=== PATIENT | female | born 1990 | race Caucasian/White ===

== ENCOUNTER → 2016-02-17 | Outpatient (CLI) | payer MEDICAID ==
[2016-02-17 16:28] LABS: Hepatitis B Surface Ag Index 0.05
[2016-02-18 07:55] LABS: HIV-1/HIV-2 Ab Screen NONREAC (NON REAC)
== END | disposition home or self-care (01) ==
LOC: LABWHC1 14:57
PROVIDERS: ATTEND Obstetrics & Gynecology
DX: Z11.3 Encounter for screening for infections with a predominantly sexual mode of transmission (principal)
CPT/HCPCS: 36415; 86780; 87340; 87389; 87491; 87591

== ENCOUNTER 2016-09-22 23:52 | Emergency (ER) | payer MEDICAID ==
[2016-09-23] VITALS: BP 138/73; PULSE 94; RESP 18; TEMP 98.5
--- NOTE | 2016-09-23 00:40 | ED ---
URI HPI - General Chief Complaint: Upper Respiratory Infection Stated Complaint: cough,sore throat Time Seen by Provider: 09/23/16 00:14 Source: patient Mode of arrival: ambulatory Limitations: no limitations - History of Present Illness Initial Comments: This patient is a 25-year-old woman with history of asthma who presents with cough, postnasal drip, very minimal congestion, and some greenish sputum production. All the symptoms have started over the course of past day and worsening tonight. She did try [id number] cough remedies without much relief and has used her albuterol without much change. MD Complaint: cough, sore throat -: days(s) Severity: moderate Quality: burning Consistency: constant Improves With: nothing Worsens With: nothing Context: sick contacts Associated Symptoms: rhinorrhea, sore throat, cough Treatments Prior to Arrival: "cold medicine", other - Related Data Home Medications Medication Instructions Recorded Confirmed Albuterol Inhaler [Ventolin Hfa 2 puff INHALATION QID PRN 09/23/16 09/23/16 Inhaler] Previous Rx's Medication Instructions Recorded Azithromycin [Zithromax Z-pack] 250 mg PO DIRECTED #6 tab 09/23/16 Fluconazole [Diflucan] 150 mg PO ONCE #1 tab 09/23/16 Promethazine 6.25MG/5Ml [Phenergan 5 ml PO Q4HR PRN #120 ml 09/23/16 Syrup] Allergies Allergy/AdvReac Type Severity Reaction Status Date / Time No Known Allergies Allergy Verified 09/23/16 00:00 Review of Systems ROS Statement: Those systems with pertinent positive or pertinent negative responses have been documented in the HPI. ROS Other: All systems not noted in ROS Statement are negative. Constitutional: Denies: fever, chills ENT: Reports: throat pain Respiratory: Reports: cough. Denies: dyspnea, wheezes, hemoptysis Cardiovascular: Denies: chest pain, palpitations Gastrointestinal: Denies: abdominal pain, vomiting Genitourinary: Denies: dysuria, hematuria Musculoskeletal: Denies: back pain Neurological: Denies: headache Past Medical History Past Medical History: Asthma History of Any Multi-Drug Resistant Organisms: None Reported Past Surgical History: No Surgical Hx Reported Additional Past Surgical History / Comment(s): wisdom teeth removal Past Psychological History: No Psychological Hx Reported Smoking Status: Current some day smoker Past Alcohol Use History: Occasional Past Drug Use History: None Reported General Exam Limitations: no limitations General appearance: alert, in no apparent distress Head exam: Present: atraumatic, normocephalic Eye exam: Present: normal appearance. Absent: scleral icterus, conjunctival injection ENT exam: Present: mucous membranes moist, TM's normal bilaterally, normal external ear exam, other (There is injection of the pharynx. With mild cobblestoning) Neck exam: Present: normal inspection, full ROM, lymphadenopathy. Absent: meningismus Respiratory exam: Present: normal lung sounds bilaterally. Absent: respiratory distress, wheezes, rales, rhonchi, stridor Cardiovascular Exam: Present: regular rate, normal rhythm, normal heart sounds Neurological exam: Present: alert Skin exam: Present: warm, dry, intact, normal color. Absent: rash Course Vital Signs 09/22/16 09/23/16 23:57 00:51 Temperature 98.5 F Pulse Rate 94 Respiratory 18 18 Rate Blood Pressure 138/73 O2 Sat by Pulse 99 Oximetry Disposition Clinical Impression: Bronchitis, Upper respiratory infection Disposition: HOME SELF-CARE Condition: Fair Instructions: Upper Respiratory Infection (ED), Acute Bronchitis (ED) Prescriptions: Azithromycin [Zithromax Z-pack] 250 mg PO DIRECTED #6 tab Fluconazole [Diflucan] 150 mg PO ONCE #1 tab Promethazine 6.25MG/5Ml [Phenergan Syrup] 5 ml PO Q4HR PRN #120 ml PRN Reason: Cough Referrals: None,Stated [Primary Care Provider] - 1-2 days
[2016-09-23] MEDS ORDERED: AZITHROMYCIN 500 MG TAB PO STA (00:49)
== END 2016-09-23 00:58 | disposition home or self-care (01) ==
LOC: EC 23:52
DX: J40 Bronchitis, not specified as acute or chronic (principal); J06.9 Acute upper respiratory infection, unspecified; F17.200 Nicotine dependence, unspecified, uncomplicated
CPT/HCPCS: 99283

== ENCOUNTER → 2018-04-24 | Outpatient (CLI) | payer MEDICAID ==
[2018-04-24 11:12] LABS: HCT 39.8 % (34.0-46.0); HGB 13.3 gm/dL (11.4-16.0); MCH 32.3 pg (25.0-35.0); MCHC 33.5 g/dL (31.0-37.0); MCV 96.6 fL (80.0-100.0); Mean Platelet Volume 6.9; Platelet Count 228 k/uL (150-450); RBC 4.12 m/uL (3.80-5.40); RDW 12.3 % (11.5-15.5); WBC 4.5 k/uL (3.8-10.6)
[2018-04-24 17:49] LABS: Albumin 4.2 g/dL (3.80-4.90); Anion Gap 6.9 mmol/L (4.00-12.00); Carbon Dioxide 25.1 mmol/L (21.6-31.8); Globulin 2.1 g/dL (1.6-3.3); Potassium 3.9 mmol/L (3.5-5.5); Total Bilirubin 0.6 mg/dL (0.3-1.2); Total Protein 6.3 g/dL (6.2-8.2)
[2018-04-24 17:58] LABS: Iron Saturation 31.57 (12.00-45.00)
[2018-04-24 18:42] LABS: Egg White IgE <0.10 kU/L; Scallop IgE <0.10 kU/L; Walnut IgE (Food) <0.10 kU/L
[2018-04-24 18:44] LABS: Codfish IgE <0.10 kU/L; Peanut IgE <0.10 kU/L; Soybean IgE <0.10 kU/L
[2018-04-24 18:45] LABS: Clam IgE <0.10 kU/L; Shrimp IgE <0.10 kU/L
[2018-04-24 18:47] LABS: Immunoglobulin E 8.76 IU/mL (0.00-114.00)
== END | disposition home or self-care (01) ==
LOC: LABWHC1 10:18
PROVIDERS: ATTEND Family Medicine
DX: T78.1XXA Other adverse food reactions, not elsewhere classified, initial encounter (principal); R10.9 Unspecified abdominal pain; Z86.2 Personal history of diseases of the blood and blood-forming organs and certain disorders involving the immune mechanism
CPT/HCPCS: 36415; 80053; 82607; 82728; 82747; 82785; 83516; 83540; 83550; 85027; 86003

== ENCOUNTER → 2020-12-12 | Outpatient (CLI) | payer MEDICAID ==
[2020-12-12 20:29] LABS: HCT 42.5 % (37.2-46.3); HGB 13.4 g/dL (12.0-15.0); MCH 29.8 pg (27.0-32.0); MCHC 31.5 g/dL (32.0-37.0); MCV 94.7 fL (80.0-97.0); Mean Platelet Volume 11.1 fL (9.5-12.2); Platelet Count 263 X 10*3/uL (140-440); RBC 4.49 X 10*6/uL (4.10-5.20); RDW 12.8 % (11.5-14.5); WBC 5.62 X 10*3/uL (4.50-10.00)
[2020-12-12 21:30] LABS: African American GFR (CKD) 140.6 (60.0-200.0); Albumin 4.6 g/dL (3.8-4.9); Albumin/Globulin Ratio 1.95 (1.60-3.17); Anion Gap 12.2 mmol/L (4.00-12.00); BUN/Creat Ratio 22.24 Ratio (12.00-20.00); Blood Urea Nitrogen 13.1 mg/dL (9.0-27.0); Calcium 9.4 mg/dL (8.7-10.3); Carbon Dioxide 24.9 mmol/L (21.6-31.8); Globulin 2.3 g/dL (1.6-3.3); Non-African American GFR(CKD) 121.3 (60.0-200.0); Potassium 4.1 mmol/L (3.5-5.5); Total Bilirubin 0.4 mg/dL (0.30-1.20); Total Protein 6.9 g/dL (6.2-8.2)
== END | disposition home or self-care (01) ==
LOC: LABWHC1 11:20
PROVIDERS: ATTEND Family Medicine
DX: D50.9 Iron deficiency anemia, unspecified (principal); R53.83 Other fatigue
CPT/HCPCS: 36415; 80053; 84443; 84481; 85027

== ENCOUNTER → 2021-10-13 | Outpatient (CLI) | payer MEDICAID ==
[2021-10-13 19:53] LABS: C Reactive Protein <0.30 mg/dL (0.00-0.80); Rheumatoid Factor, Qnt <10 IU/mL (0-15); Uric Acid 3.5 mg/dL (2.9-7.7)
[2021-10-13 20:27] LABS: DNA Double-Stranded NEGATIVE (NEGATIVE)
[2021-10-13 21:05] LABS: Basophils # (A) 0.02 X 10*3/uL (0.00-0.10); Basophils % (A) 0.4 %; Eosinophils # (A) 0.01 X 10*3/uL (0.04-0.35); Eosinophils % (A) 0.2 %; HCT 37.6 % (37.2-46.3); Immature Grans, Automated 0.2 %; Lymphocytes # (A) 1.84 X 10*3/uL (0.90-5.00); Lymphocytes % (A) 32.3 %; MCH 29.6 pg (27.0-32.0); MCHC 31.9 g/dL (32.0-37.0); MCV 92.8 fL (80.0-97.0); Monocytes # (A) 0.47 X 10*3/uL (0.20-1.00); Monocytes % (A) 8.2 %; NRBC Per 100 WBC 0 /100 WBCS (0.0-0.0); Neutrophils # (A) 3.35 X 10*3/uL (1.80-7.70); Neutrophils % (A) 58.7 %; Platelet Count 265 X 10*3/uL (140-440); RBC 4.05 X 10*6/uL (4.10-5.20); RDW 13.2 % (11.5-14.5)
[2021-10-13 21:23] LABS: Erythrocyte Sedimentation Rate 5 mm/Hr (0-20)
[2021-10-14 13:04] LABS: HLA B27 NEGATIVE
== END | disposition home or self-care (01) ==
LOC: LABWHC1 11:36
PROVIDERS: ATTEND Orthopaedic Surgery
DX: M25.50 Pain in unspecified joint (principal)
CPT/HCPCS: 36415; 84550; 85025; 85652; 86038; 86140; 86225; 86431; 86812

== ENCOUNTER → 2021-11-28 | Outpatient (CLI) | payer MEDICAID ==
--- NOTE | 2021-11-28 17:30 | MR ---
EXAMINATION TYPE: MR knee LT wo con DATE OF EXAM: 11/28/2021 COMPARISON: Radiograph 10/11/2021 HISTORY: 31 year-old female M25.562, Left knee pain and swelling since 08-28-21. TECHNIQUE: Multiplanar, multisequence imaging of the left knee is performed without IV contrast. FINDINGS: The ACL, PCL, MCL, and LCL complex are intact. Both medial and lateral menisci appear intact. There is some edema noted along the posteromedial corner of the tibial plateau corresponding to the i nsertion of the semimembranosus. There is a multilocular ganglion cysts at the tendon insertion measu ring 2.3 cm craniocaudal by 1.7 cm wide by 5 mm AP and seems to reflect a partial thickness insertion al tear. Tricompartmental articular cartilage volumes appear maintained. There is a moderate knee joint effusion and possible mild chronic synovitis. No appreciable Yu's c yst. Extensor mechanism is intact. Trace fluid within the deep infrapatellar bursa. Normal popliteal artery anatomy and muscle bulk. No suspicious bone marrow replacement. IMPRESSION: 1. Soft tissue swelling adjacent to the the posteromedial lip of the tibial plateau seems to correspo nd to the region of the semimembranosus insertion. There is a multilocular ganglion cyst here measuri ng 2.3 x 1.7 x 0.5 cm that may reflect a partial thickness insertional tear. 2. No discrete cruciate/collateral ligament or meniscal tear. No discrete cartilage injury seen. 3. Moderate knee joint effusion with mild chronic synovitis.
== END | disposition home or self-care (01) ==
LOC: RADMRIMAIN 11:06
PROVIDERS: ATTEND Orthopaedic Surgery
DX: M67.462 Ganglion, left knee (principal); M65.9 Synovitis and tenosynovitis, unspecified

== ENCOUNTER → 2023-05-01 | Outpatient (CLI) | payer MEDICAID ==
[2023-05-01 17:05] LABS: HCT 40.3 % (37.2-46.3); HGB 13.3 g/dL (12.0-15.0); MCV 90.8 FL (80.0-97.0); Mean Platelet Volume 10.7 FL (9.5-12.2); NRBC Per 100 WBC 0 X 10*3/uL (0.00-0.01); Platelet Count 336 X 10*3/uL (140-440); RBC 4.44 X 10*6/uL (4.10-5.20); RDW 12.2 % (11.5-14.5); WBC 5.82 X 10*3/uL (4.50-10.00)
[2023-05-01 17:41] LABS: % Iron Saturation 33.67 (12.00-45.00); ALT 16 U/L (8-44); AST 29 U/L (13-35); Albumin 4.8 g/dL (3.8-4.9); Albumin/Globulin Ratio 1.85 Ratio (1.60-3.17); Alkaline Phosphatase 64 U/L (41-126); BUN/Creat Ratio 20.67 Ratio (12.00-20.00); Blood Urea Nitrogen 12.4 mg/dL (9.0-27.0); Calcium 9.7 mg/dL (8.7-10.3); Carbon Dioxide 22.8 mmol/L (21.6-31.8); Chloride 104 mmol/L (96-109); Chol/HDL Ratio 2.75 Ratio; Ferritin 47.8 ng/mL (10.0-291.0); Globulin 2.6 g/dL (1.6-3.3); Glucose 97 mg/dL (70-110); Iron 167 UG/DL (50-170); LDL Cholesterol,Calculated 102.4 mg/dL (0.0-131.0); Potassium 4.6 mmol/L (3.5-5.5); Sodium 140 mmol/L (135-145); Total Bilirubin 0.5 mg/dL (0.3-1.2); Total Iron Binding Capacity 496 UG/DL (228-460); Total Protein 7.4 g/dL (6.2-8.2); VLDL Calculation 14.84 mg/dL (5.00-40.00)
== END | disposition home or self-care (01) ==
LOC: LABWHC1 10:07
PROVIDERS: ATTEND Family Medicine
DX: Z00.01 Encounter for general adult medical examination with abnormal findings (principal); D50.9 Iron deficiency anemia, unspecified
CPT/HCPCS: 36415; 80053; 80061; 82607; 82728; 82747; 83540; 83550; 85027

== ENCOUNTER → 2023-07-18 | Outpatient (CLI) | payer SELFPAY ==
[2023-07-18 19:39] LABS: T4, Free (Free Thyroxine) 1.18 ng/dL (0.80-1.80)
== END | disposition home or self-care (01) ==
LOC: LABWHC1 12:53
PROVIDERS: ATTEND Family Medicine
DX: Z83.49 Family history of other endocrine, nutritional and metabolic diseases (principal)
CPT/HCPCS: 36415; 84439; 84443; 84481

== ENCOUNTER → 2024-05-27 | Outpatient (CLI) | payer MEDICAID ==
[2024-05-27 10:32] LABS: HCT 38.5 % (37.2-46.3); HGB 12.6 g/dL (12.0-15.0); MCH 30.1 pg (27.0-32.0); MCHC 32.7 g/dL (32.0-37.0); MCV 91.9 FL (80.0-97.0); Mean Platelet Volume 10.6 FL (9.5-12.2); NRBC Per 100 WBC 0 X 10*3/uL (0.00-0.01); Platelet Count 266 X 10*3/uL (140-440); RBC 4.19 X 10*6/uL (4.10-5.20); RDW 12.2 % (11.5-14.5); WBC 4.57 X 10*3/uL (4.50-10.00)
[2024-05-27 11:13] LABS: % Iron Saturation 39.53 (12.00-45.00); ALT 13 U/L (8-44); AST 19 U/L (13-35); Albumin 4.4 g/dL (3.8-4.9); Albumin/Globulin Ratio 1.76 Ratio (1.60-3.17); Alkaline Phosphatase 66 U/L (41-126); BUN/Creat Ratio 16.67 Ratio (12.00-20.00); Calcium 9.2 mg/dL (8.7-10.3); Carbon Dioxide 25.4 mmol/L (21.6-31.8); Chloride 103 mmol/L (96-109); Ferritin 30.8 ng/mL (10.0-291.0); Globulin 2.5 g/dL (1.6-3.3); Glucose 96 mg/dL (70-110); Iron 202 UG/DL (50-170); LDL Cholesterol,Calculated 95.2 mg/dL (0.0-131.0); Sodium 138 mmol/L (135-145); Total Bilirubin 0.8 mg/dL (0.3-1.2); Total Iron Binding Capacity 511 UG/DL (228-460); Total Protein 6.9 g/dL (6.2-8.2); VLDL Calculation 12.02 mg/dL (5.00-40.00)
== END | disposition home or self-care (01) ==
LOC: LABWHC1 07:23
PROVIDERS: ATTEND Family Medicine
DX: Z00.00 Encounter for general adult medical examination without abnormal findings (principal); D50.9 Iron deficiency anemia, unspecified
CPT/HCPCS: 36415; 80053; 80061; 82607; 82728; 82746; 83540; 83550; 85027

== ENCOUNTER 2024-09-05 12:41 | Emergency (ER) | payer MEDICAID ==
[2024-09-05 12:46] VITALS: TEMP 98.9
--- NOTE | 2024-09-05 13:21 | ED ---
General Adult HPI - General Chief complaint: Syncope Stated complaint: Syncope Time Seen by Provider: 09/05/24 12:54 Source: patient, RN notes reviewed Mode of arrival: ambulatory Limitations: no limitations - History of Present Illness Initial comments: 33-year-old female with no reported medical conditions, [id number] presenting to the ER with complaints of near syncope. Patient states that she was at work this morning when she felt warm, clammy, and lightheaded. At this time she began to experience mild chest pain and difficulty breathing stating that she felt like she was going to pass out. She states that one of her coworkers helped lead her to sit down when she felt like she was "lighting". She was provided with juice at that time. She denies syncope. Currently patient states that she feels tired. Reports that over the past few weeks she has not been sleeping well. She denies headaches, abdominal pain, chest pain or difficulty of breathing. Denies urinary complaints or vaginal bleeding. Patient states that her last menstrual cycle was in the beginning of July and had a positive test 2 weeks ago. Denies history of DVT, PE, recent travel or surgeries, contraceptive use. Denies blood thinner use. - Related Data Home Medications Medication Instructions Recorded Confirmed Albuterol Inhaler [Ventolin Hfa 2 puff INHALATION QID PRN 09/23/16 09/23/16 Inhaler] Previous Rx's Medication Instructions Recorded Azithromycin [Zithromax Z-pack (6 250 mg PO DIRECTED #6 tab 09/23/16 tabs)] Fluconazole [Diflucan] 150 mg PO ONCE #1 tab 09/23/16 Promethazine 6.25MG/5Ml [Phenergan 5 ml PO Q4HR PRN #120 ml 09/23/16 Syrup] Allergies Allergy/AdvReac Type Severity Reaction Status Date / Time No Known Allergies Allergy Verified 09/05/24 12:46 Review of Systems ROS Statement: Those systems with pertinent positive or pertinent negative responses have been documented in the HPI. ROS Other: All systems not noted in ROS Statement are negative. Past Medical History Past Medical History: Asthma History of Any Multi-Drug Resistant Organisms: None Reported Past Surgical History: No Surgical Hx Reported Additional Past Surgical History / Comment(s): wisdom teeth removal Past Psychological History: No Psychological Hx Reported Smoking Status: Never smoker Past Alcohol Use History: Occasional Past Drug Use History: None Reported General Exam Limitations: no limitations Eye exam: Present: normal appearance, PERRL, EOMI. Absent: scleral icterus, conjunctival injection, periorbital swelling Neck exam: Present: normal inspection. Absent: tenderness, meningismus, lymphadenopathy Respiratory exam: Present: normal lung sounds bilaterally. Absent: respiratory distress, wheezes, rales, rhonchi, stridor Cardiovascular Exam: Present: regular rate, normal rhythm, normal heart sounds. Absent: systolic murmur, diastolic murmur, rubs, gallop, clicks GI/Abdominal exam: Present: soft, normal bowel sounds. Absent: distended, tenderness, guarding, rebound, rigid Extremities exam: Present: normal inspection, full ROM, normal capillary refill. Absent: tenderness, pedal edema, joint swelling, calf tenderness Back exam: Present: normal inspection. Absent: CVA tenderness (R), CVA tenderness (L) Skin exam: Present: warm, dry, intact, normal color. Absent: rash Course Vital Signs 09/05/24 09/05/24 12:44 14:27 Temperature 98.9 F Pulse Rate 94 87 Respiratory 20 18 Rate Blood Pressure 132/79 103/76 O2 Sat by Pulse 99 99 Oximetry Medical Decision Making - Medical Decision Making Was pt. sent in by a medical professional or institution ([facility], [facility] [employer], urgent care, hospital, or skilled nursing...) When possible be specific @ -No Did you speak to anyone other than the patient for history (EMS, parent, family, police, friend...)? What history was obtained from this source @ -No Did you review nursing and triage notes (agree or disagree)? Why? @ -I reviewed and agree with nursing and triage notes Were old charts reviewed (outside hosp., previous admission, EMS record, old EKG, old radiological studies, urgent care reports/EKG's, skilled nursing records)? Report findings @ -No old charts were reviewed Differential Diagnosis (chest pain, altered mental status, abdominal pain women, abdominal pain men, vaginal bleeding, weakness, fever, dyspnea, syncope, headache, dizziness, GI bleed, back pain, seizure, CVA, palpatations, mental health, musculoskeletal)? @ -Differential Syncope: Valvular disease, hypertrophic cardiomyopathy, pulmonary embolism, tamponade, tachycardia, bradycardia, OR, hypovolemia, hemorrhage, dissection, anemia, intra cranial hemorrhage, seizure, hypoglycemia, carbon monoxide poisoning, this is not meant to be an all-inclusive list. EKG interpreted by me (3pts min.). @ -Completed at 1253 sinus rhythm with a ventricular rate of 91, FL interval 146, QRS 97, QT 343, QTc 392. X-rays interpreted by me (1pt min.). @ -None done CT interpreted by me (1pt min.). @ -None done U/S interpreted by me (1pt. min.). @ -Transabdominal ultrasound reveals a single live intrauterine with a gestational age of 6 weeks 4 days, heart rate of 103 with evidence of a corpus luteal cyst on the left ovary and a mild subchorionic bleed of the right uterine horn What testing was considered but not performed or refused? (CT, X-rays, U/S, labs)? Why? @ -None What meds were considered but not given or refused? Why? @ -None Did you discuss the management of the patient with other professionals (pa malone i.e. , PA, [employer], lab, RT, psych nurse, social psychologist, jockey agent, teacher, precinct commanding officer, high risk case manager)? Give summary @ -No Was smoking cessation discussed for >3mins.? @ -No Was critical care preformed (if so, how long)? @ -No Were there social determinants of health that impacted care today? How? (Homelessness, low income, unemployed, alcoholism, drug addiction, transportation, low edu. Level, literacy, decrease access to med. care, correction, rehab)? @ -No Was there de-escalation of care discussed even if they declined (Discuss DNR or withdrawal of care, Hospice)? DNR status @ -No What co-morbidities impacted this encounter? (DM, HTN, Smoking, COPD, CAD, Cancer, CVA, ARF, Chemo, Hep., AIDS, mental health diagnosis, sleep apnea, morbid obesity)? @ -None Was patient admitted / discharged? Hospital course, mention meds given and route, prescriptions, significant lab abnormalities, going to OR and other pertinent info. @ -Discharge. 33-year-old female presenting with near syncope. Patient is stable and resting comfortably in examination bed evaluation. EKG is in sinus rhythm. With concern for near syncope and recent findings of patient will undergo ultrasound imaging and laboratory testing. Patient CBC, CMP, urinalysis unremarkable. Troponin is not detected. Ultrasound reveals a intrauterine noted at 6 weeks 4 days with a heart rate of 103. hCG level of 18,414. Recommend patient follow-up as scheduled with OB for further evaluation. Return parameters discussed. Case discussed with my attending Dr. Sher. Undiagnosed new problem with uncertain prognosis? @ -No Drug Therapy requiring intensive monitoring for toxicity (Heparin, Nitro, Insulin, Cardizem)? @ -No Were any procedures done? @ -No Diagnosis/symptom? @ -Near syncope, early Acute, or Chronic, or Acute on Chronic? @ -Acute Uncomplicated (without systemic symptoms) or Complicated (systemic symptoms)? @ -uncomplicated Side effects of treatment? @ -No Exacerbation, Progression, or Severe Exacerbation? @ -No Poses a threat to life or bodily function? How? (Chest pain, USA, OR, pneumonia, PE, COPD, DKA, ARF, appy, cholecystitis, CVA, Diverticulitis, Homicidal, Suicidal, threat to staff... and all critical care pts) @ -No - Lab Data Result diagrams: 09/05/24 13:41 09/05/24 13:41 Lab Results 09/05/24 09/05/24 09/05/24 Range/Units 13:24 13:41 13:41 WBC 7.69 (4.50-10.00) 10*3/uL RBC 4.02 L (4.10-5.20) 10*6/uL Hgb 12.5 (12.0-15.0) g/dL Hct 35.8 L (37.2-46.3) % MCV 89.1 (80.0-97.0) fL MCH 31.1 (27.0-32.0) pg MCHC 34.9 (32.0-37.0) g/dL Plt Count 267 (140-440) 10*3/uL MPV 10.1 (9.5-12.2) fL Immature Gran % (Auto) 0.1 % Neutrophils % 62.3 % Lymphocytes % 27.4 % Monocytes % 9.5 % Eosinophils % 0.4 % Basophils % 0.3 % Immature Gran # 0.01 (0.00-0.04) 10*3/uL Neutrophils # 4.79 (1.80-7.70) 10*3/uL Lymphocytes # 2.11 (0.90-5.00) 10*3/uL Monocytes # 0.73 (0.20-1.00) 10*3/uL Eosinophils # 0.03 L (0.04-0.35) 10*3/uL Basophils # 0.02 (0.00-0.10) 10*3/uL PT 10.7 (10.0-12.5) sec INR 1.0 (<1.2) APTT 24.3 (22.0-30.0) sec Sodium (137-145) mmol/L Potassium (3.5-5.1) mmol/L Chloride (98-107) mmol/L Carbon Dioxide (22-30) mmol/L Anion Gap mmol/L BUN (7-17) mg/dL Creatinine (0.52-1.04) mg/dL Est GFR (CKD-EPI)AfAm (>60 ml/min/1.73 sqM) Est GFR (CKD-EPI)NonAf (>60 ml/min/1.73 sqM) Glucose (74-99) mg/dL Calcium (8.4-10.2) mg/dL Magnesium (1.6-2.3) mg/dL Total Bilirubin (0.2-1.3) mg/dL AST (14-36) U/L ALT (4-34) U/L Alkaline Phosphatase (38-126) U/L Troponin I (0.000-0.034) ng/mL Total Protein (6.3-8.2) g/dL Albumin (3.5-5.0) g/dL HCG, Quant mIU/mL Urine Color Colorless Urine Appearance Clear (Clear) Urine pH 6.0 (5.0-8.0) Ur Specific [place] 1.002 (1.001-1.035) Urine Protein Negative (Negative) Urine Glucose (UA) Negative (Negative) Urine Ketones Negative (Negative) Urine Blood Negative (Negative) Urine Nitrite Negative (Negative) Urine Bilirubin Negative (Negative) Urine Urobilinogen <2.0 (<2.0) mg/dL Ur Leukocyte Esterase Negative (Negative) 09/05/24 09/05/24 Range/Units 13:41 13:41 WBC (4.50-10.00) 10*3/uL RBC (4.10-5.20) 10*6/uL Hgb (12.0-15.0) g/dL Hct (37.2-46.3) % MCV (80.0-97.0) fL MCH (27.0-32.0) pg MCHC (32.0-37.0) g/dL Plt Count (140-440) 10*3/uL MPV (9.5-12.2) fL Immature Gran % (Auto) % Neutrophils % % Lymphocytes % % Monocytes % % Eosinophils % % Basophils % % Immature Gran # (0.00-0.04) 10*3/uL Neutrophils # (1.80-7.70) 10*3/uL Lymphocytes # (0.90-5.00) 10*3/uL Monocytes # (0.20-1.00) 10*3/uL Eosinophils # (0.04-0.35) 10*3/uL Basophils # (0.00-0.10) 10*3/uL PT (10.0-12.5) sec INR (<1.2) APTT (22.0-30.0) sec Sodium 138 (137-145) mmol/L Potassium 3.9 (3.5-5.1) mmol/L Chloride 103 (98-107) mmol/L Carbon Dioxide 23 (22-30) mmol/L Anion Gap 12 mmol/L BUN 9 (7-17) mg/dL Creatinine 0.41 L (0.52-1.04) mg/dL Est GFR (CKD-EPI)AfAm >90 (>60 ml/min/1.73 sqM) Est GFR (CKD-EPI)NonAf >90 (>60 ml/min/1.73 sqM) Glucose 123 H (74-99) mg/dL Calcium 9.6 (8.4-10.2) mg/dL Magnesium 2.1 (1.6-2.3) mg/dL Total Bilirubin 0.5 (0.2-1.3) mg/dL AST 21 (14-36) U/L ALT 14 (4-34) U/L Alkaline Phosphatase 47 (38-126) U/L Troponin I <0.012 (0.000-0.034) ng/mL Total Protein 7.4 (6.3-8.2) g/dL Albumin 4.7 (3.5-5.0) g/dL HCG, Quant 37555.5 mIU/mL Urine Color Urine Appearance (Clear) Urine pH (5.0-8.0) Ur Specific [place] (1.001-1.035) Urine Protein (Negative) Urine Glucose (UA) (Negative) Urine Ketones (Negative) Urine Blood (Negative) Urine Nitrite (Negative) Urine Bilirubin (Negative) Urine Urobilinogen (<2.0) mg/dL Ur Leukocyte Esterase (Negative) Disposition Clinical Impression: Near syncope, Early stage of Disposition: HOME SELF-CARE Condition: Good Instructions (If sedation given, give patient instructions): Near Syncope (ED) Additional Instructions: Please return to the Emergency Department if symptoms worsen or any other concerns. Is patient prescribed a controlled substance at d/c from ED?: No Referrals: Esdras Jean MD [Primary Care Provider] - 1-2 days Time of Disposition: 15:00
[2024-09-05 13:28] LABS: Bilirubin,Urine Negative (Negative); Blood,Urine Negative (Negative); Color,Urine Colorless; Glucose,Urine (UA) Negative (Negative); Ketones,Urine Negative (Negative); Leukocyte Esterase,Urine Negative (Negative); Nitrite,Urine Negative (Negative); PH, Urine 6.0 (5.0-8.0); Protein,Urine Negative (Negative); Specific Gravity,Urine 1.002 (1.001-1.035); Urobilinogen,Urine <2.0 mg/dL (<2.0)
[2024-09-05 13:45] LABS: Basophils # (A) 0.02 10*3/uL (0.00-0.10); Basophils % (A) 0.3 %; Eosinophils # (A) 0.03 10*3/uL (0.04-0.35); Eosinophils % (A) 0.4 %; HCT 35.8 % (37.2-46.3); HGB 12.5 g/dL (12.0-15.0); Lymphocytes # (A) 2.11 10*3/uL (0.90-5.00); Lymphocytes % (A) 27.4 %; MCH 31.1 pg (27.0-32.0); MCHC 34.9 g/dL (32.0-37.0); MCV 89.1 fL (80.0-97.0); Monocytes # (A) 0.73 10*3/uL (0.20-1.00); Monocytes % (A) 9.5 %; Neutrophils # (A) 4.79 10*3/uL (1.80-7.70); Neutrophils % (A) 62.3 %; Platelet Count 267 10*3/uL (140-440); RBC 4.02 10*6/uL (4.10-5.20); RDW 12.2 % (11.5-14.5); WBC 7.69 10*3/uL (4.50-10.00)
[2024-09-05 14:02] LABS: ALT 14 U/L (4-34); AST 21 U/L (14-36); African American GFR (CKD) >90 (>60 ml/min/1.73 sqM); Albumin 4.7 g/dL (3.5-5.0); Alkaline Phosphatase 47 U/L (38-126); Anion Gap 12 mmol/L; Blood Urea Nitrogen 9 mg/dL (7-17); Calcium 9.6 mg/dL (8.4-10.2); Carbon Dioxide 23 mmol/L (22-30); Chloride 103 mmol/L (98-107); Glucose 123 mg/dL (74-99); Magnesium 2.1 mg/dL (1.6-2.3); Non-African American GFR(CKD) >90 (>60 ml/min/1.73 sqM); Potassium 3.9 mmol/L (3.5-5.1); Sodium 138 mmol/L (137-145); Total Protein 7.4 g/dL (6.3-8.2)
[2024-09-05 14:14] LABS: INR 1.0 (<1.2); Partial Thromboplastin Time 24.3 sec (22.0-30.0); Prothrombin Time 10.7 sec (10.0-12.5)
[2024-09-05] MEDS: SODIUM CHLORIDE 0.9% 1,000 ML IV STA (14:24)
[2024-09-05 14:30] VITALS: BP 103/76; PULSE 87; RESP 18
--- NOTE | 2024-09-05 14:44 | US ---
EXAMINATION TYPE: Transabdominal DATE OF EXAM: 09/05/2024 2:31 PM COMPARISON: NONE CLINICAL INDICATION: Female, 33 years old with history of early , near syncope; near syncope TECHNIQUE: Transvaginal (TV) and Transabdominal (TA) with grayscale and color Doppler imaging includi ng first trimester . FINDINGS: EXAM MEASUREMENTS: GESTATIONAL AGE / DATING Physician Established: Not yet established Dates by LMP: (6 weeks/4 days) EDC: 04/27/25 Dates by First Scan: No previous this is first scan Dates by Current Scan for: (6 weeks/2 days) EDC: 04/29/25 MATERNAL ANATOMY Uterus: 9.2 x 4.6 x 7.0 cm Right Ovary: 2.3 x 1.5 x 1.0 cm Left Ovary: 3.6 x 2.5 x 1.9 cm Post CDS / Adnexa: wnl Presence of free fluid: no Presence of corpus luteal cyst: left ovary: 2.6 x 1.8 x 2.0 cm Presence of subchorionic bleed: right uterine horn: 0.6 x 0.3 x 0.5 cm GESTATION / SURVEY CRL: 0.44 cm (6 weeks/1 days) Gestational Sac morphology: unremarkable Gestational Sac MSD: 1.46 cm (6 weeks/2 days) Yolk Sac (normal less than 6mm): 4mm Cardiac Activity/Heart Rate: 103 bpm Rhythm: Normal IUP: Viable IUP Date of LMP: 07/21/24 Beta HcG (if available): Not available at this time Heterogeneous appearance of the myometrium. IMPRESSION: 1. Single live intrauterine with estimated gestational age of 6 weeks 4 days. [facility], , 09/05/2024 2:42 PM
[2024-09-05 14:48] LABS: HCG,Quantitative Serum 18414.5 mIU/mL
== END 2024-09-05 15:18 | disposition home or self-care (01) ==
LOC: EC 12:41
DX: O26.891 Other specified pregnancy related conditions, first trimester (principal); R55 Syncope and collapse; Z3A.01 Less than 8 weeks gestation of pregnancy
CPT/HCPCS: 36415; 76801; 76817; 80053; 81003; 83735; 84484; 84702; 85025; 85610; 85730; 93005; 99284